=== PATIENT | male | born 1950 | race African-American/Black ===

== ENCOUNTER 2018-10-04 13:41 | Emergency (ER) | payer OTHER ==
--- NOTE | 2018-10-04 14:43 | ER ---
Nurse's Notes [facility] Name: Travis Ferris Age: 67 yrs Sex: Male : 1950 Arrival Date: 10/04/2018 Time: 13:44 Bed 14 Private MD: Katya Vallejo C Diagnosis: Scabies;Irritant contact dermatitis Presentation: 10/04 13:44 Presenting complaint: Patient states: i think i had shingles that showed up last hj Saturday on my R arm, back area, legs and buttocks area; it munoz;. Transition of care: patient was not received from another setting of care. Onset of symptoms was October 04, 2018. Risk Assessment: Do you want to hurt yourself or someone else? Patient reports no desire to harm self or others. Initial Sepsis Screen: Does the patient meet any 2 criteria? No. Patient's initial sepsis screen is negative. Does the patient have a suspected source of infection? No. Patient's initial sepsis screen is negative. Care prior to arrival: None. 13:44 Method Of Arrival: Ambulatory 13:44 Acuity: NINI 4 hj Historical: - Allergies: 13:45 No Known Allergies; hj - PMHx: 13:45 Hyperlipidemia; Hypertension; spider bite; hj - PSHx: 13:45 None; hj - Immunization history:: Adult Immunizations up to date. - Social history:: Smoking status: Patient/guardian denies using tobacco. - Ebola Screening: : Patient negative for fever greater than or equal to 101.5 degrees Fahrenheit, and additional compatible Ebola Virus Disease symptoms Patient denies exposure to infectious person Patient denies travel to an Ebola-affected area in the 21 days before illness onset No symptoms or risks identified at this time. Screenin:00 Abuse screen: Denies threats or abuse. Denies injuries from another. Nutritional sg screening: No deficits noted. Tuberculosis screening: No symptoms or risk factors identified. Never had TB. Fall Risk None identified. Assessment: 14:00 General: Appears in no apparent distress. well groomed, well developed, well nourished, sg Behavior is calm, cooperative, appropriate for age. Pain: Denies pain. Neuro: Level of Consciousness is awake, alert, obeys commands, Oriented to person, place, time, situation, Speech is normal, Facial symmetry appears normal. Cardiovascular: Capillary refill is brisk in bilateral fingers Patient's skin is warm and dry. Chest pain is denied. Respiratory: Airway is patent Respiratory effort is even, unlabored, Respiratory pattern is regular, symmetrical. GI: Abdomen is flat, non-distended. : No signs and/or symptoms were reported regarding the genitourinary system. EENT: No signs and/or symptoms were reported regarding the EENT system. Derm: Skin is pink, warm \T\ dry. Rash noted that is itchy, red, Reports itching. Musculoskeletal: Circulation, motion, and sensation intact. Range of motion: intact in all extremities. Vital Signs: 13:45 BP 144 / 65; Pulse 78; Resp 18; Temp 98.2(O); Pulse Ox 98% on R/A; Weight 90.72 kg; hj Height 6 ft. 2 in. (187.96 cm); Pain 4/10; 13:45 Body Mass Index 25.68 (90.72 kg, 187.96 cm) hj ED Course: 13:44 Patient arrived in ED. mr 13:44 Katya Vallejo MD is Private Physician. mr 13:45 Triage completed. hj 13:45 Arm band placed on left wrist. hj 13:55 Wilberto David RN is Primary Nurse. sg 14:00 Patient has correct armband on for positive identification. Bed in low position. Call sg light in reach. Side rails up X2. Pulse ox on. NIBP on. 14:29 Mallika Graham FNP-C is PHCP. snw 14:29 Quinn Rosas MD is Attending Physician. snw 14:41 Katya Vallejo MD is Referral Physician. snw 14:45 No provider procedures requiring assistance completed. Patient did not have IV access sg during this emergency room visit. Administered Medications: No medications were administered Outcome: 14:42 Discharge ordered by . snw 14:45 Discharged to home ambulatory, with family. sg 14:45 Condition: good 14:45 Discharge instructions given to patient, Instructed on discharge instructions, follow up and referral plans. safety practices, Demonstrated understanding of instructions, follow-up care, Prescriptions given X 2. 14:48 Patient left the ED. ms Signatures: Wilberto David RN RN Mallika Graham FNP-C FNP-Emilie Hatch mr Noemy Juan ms Robbi Vila, RN RN hj
--- NOTE | 2018-10-04 14:43 | EDPHYS ---
Physician Documentation [facility] Name: Travis Ferris Age: 67 yrs Sex: Male : 1950 Arrival Date: 10/04/2018 Time: 13:44 Bed 14 Private MD: Katya Vallejo C ED Physician Quinn Rosas HPI: 10/04 16:15 This 67 yrs old Black Male presents to ER via Ambulatory with complaints of Rash. snw 16:15 The patient's rash thought to be caused by pt thought the rash must be shingles, when snw it didn't look like shingles, pt states he has been on vacation, in different beds and felt "itchy" in a chair that might have had a flea problem. The rash is located on the body diffusely. The rash can be described as erythematous, papular, patchy, in linear distributions. Onset: The symptoms/episode began/occurred suddenly. Associated signs and symptoms: Pertinent positives: itching, worse at night. Severity of symptoms: At their worst the symptoms were moderate severe. Treatment given at home: Benadryl, OTC lotion/cream. The patient has not experienced similar symptoms in the past. It is unknown whether or not the patient has recently seen a physician. Historical: - Allergies: 13:45 No Known Allergies; hj - PMHx: 13:45 Hyperlipidemia; Hypertension; spider bite; hj - PSHx: 13:45 None; hj - Immunization history:: Adult Immunizations up to date. - Social history:: Smoking status: Patient/guardian denies using tobacco. - Ebola Screening: : Patient negative for fever greater than or equal to 101.5 degrees Fahrenheit, and additional compatible Ebola Virus Disease symptoms Patient denies exposure to infectious person Patient denies travel to an Ebola-affected area in the 21 days before illness onset No symptoms or risks identified at this time. ROS: 16:14 Constitutional: Negative for fever, chills, and weight loss, Eyes: Negative for injury, snw pain, redness, and discharge, ENT: Negative for injury, pain, and discharge, Neck: Negative for injury, pain, and swelling, Cardiovascular: Negative for chest pain, palpitations, and edema, Respiratory: Negative for shortness of breath, cough, wheezing, and pleuritic chest pain, Abdomen/GI: Negative for abdominal pain, nausea, vomiting, diarrhea, and constipation, Back: Negative for injury and pain, : Negative for injury, bleeding, discharge, and swelling, MS/Extremity: Negative for injury and deformity, Neuro: Negative for headache, weakness, numbness, tingling, and seizure, Psych: Negative for depression, anxiety, suicide ideation, homicidal ideation, and hallucinations, Allergy/Immunology: Negative for hives, rash, and allergies. 16:14 Skin: Positive for rash, of the right shoulder and arm and leg, moving to left leg and hand. Exam: 16:05 Constitutional: This is a well developed, well nourished patient who is awake, alert, snw and in no acute distress. Head/Face: Normocephalic, atraumatic. Eyes: Pupils equal round and reactive to light, extra-ocular motions intact. Lids and lashes normal. Conjunctiva and sclera are non-icteric and not injected. Cornea within normal limits. Periorbital areas with no swelling, redness, or edema. ENT: Nares patent. No nasal discharge, no septal abnormalities noted. Tympanic membranes are normal and external auditory canals are clear. Oropharynx with no redness, swelling, or masses, exudates, or evidence of obstruction, uvula midline. Mucous membranes moist. Neck: Trachea midline, no thyromegaly or masses palpated, and no cervical lymphadenopathy. Supple, full range of motion without nuchal rigidity, or vertebral point tenderness. No Meningismus. Chest/axilla: Normal chest wall appearance and motion. Nontender with no deformity. No lesions are appreciated. Cardiovascular: Regular rate and rhythm with a normal S1 and S2. No gallops, murmurs, or rubs. Normal PMI, no JVD. No pulse deficits. Respiratory: Lungs have equal breath sounds bilaterally, clear to auscultation and percussion. No rales, rhonchi or wheezes noted. No increased work of breathing, no retractions or nasal flaring. Abdomen/GI: Soft, non-tender, with normal bowel sounds. No distension or tympany. No guarding or rebound. No evidence of tenderness throughout. Back: No spinal tenderness. No costovertebral tenderness. Full range of motion. MS/ Extremity: Pulses equal, no cyanosis. Neurovascular intact. Full, normal range of motion. Neuro: Awake and alert, GCS 15, oriented to person, place, time, and situation. Cranial nerves II-XII grossly intact. Motor strength 5/5 in all extremities. Sensory grossly intact. Cerebellar exam normal. Normal gait. Psych: Awake, alert, with orientation to person, place and time. Behavior, mood, and affect are within normal limits. 16:05 Skin: Appearance: normal except for affected area, scabies, on the spreading, on both sides of body, linear configuration with surrounding erythema, pruritic worse at night. Vital Signs: 13:45 BP 144 / 65; Pulse 78; Resp 18; Temp 98.2(O); Pulse Ox 98% on R/A; Weight 90.72 kg; hj Height 6 ft. 2 in. (187.96 cm); Pain 4/10; 13:45 Body Mass Index 25.68 (90.72 kg, 187.96 cm) hj MDM: 14:33 Patient medically screened. snw 14:43 Data reviewed: vital signs, nurses notes. Data interpreted: Pulse oximetry: on room air snw is 98 %. Interpretation: normal. Counseling: I had a detailed discussion with the patient and/or guardian regarding: the historical points, exam findings, and any diagnostic results supporting the discharge/admit diagnosis, the presence of at least one elevated blood pressure reading (>120/80) during this emergency department visit, the need for outpatient follow up, for definitive care. Administered Medications: No medications were administered Disposition: 15:24 Co-signature as Attending Physician, Quinn Rosas MD. rn Disposition: 10/04/18 14:42 Discharged to Home. Impression: Scabies, Irritant contact dermatitis. - Condition is Stable. - Discharge Instructions: Contact Dermatitis, Scabies, Adult. - Prescriptions for Vistaril 25 mg Oral capsule - take 1 capsule by ORAL route 3 times per day; 30 capsule. Elimite 5 % Topical Cream - apply 1 application by TOPICAL route one time Wash after 12 hours.; 60 gram. - Medication Reconciliation Form, Thank You Letter, Antibiotic Education, Prescription Opioid Use form. - Follow up: Katya Vallejo MD; When: 2 - 3 days; Reason: Recheck today's complaints, Continuance of care, Re-evaluation by your physician. Follow up: Emergency Department; When: As needed; Reason: Worsening of condition. Signatures: Wilberto David RN RN Mallika Hsieh, MIXER OPERATOR TABLETS-C MIXER OPERATOR TABLETS-Csnw Noemy Juan ms, Roman, MD MD rn Joaquin, Henry, RN RN Corrections: (The following items were deleted from the chart) 14:48 14:42 10/04/2018 14:42 Discharged to Home. Impression: Scabies; Irritant contact ms dermatitis. Condition is Stable. Forms are Medication Reconciliation Form, Thank You Letter, Antibiotic Education, Prescription Opioid Use. Follow up: A Vallejo; When: 2 - 3 days; Reason: Recheck today's complaints, Continuance of care, Re-evaluation by your physician. Follow up: Emergency Department; When: As needed; Reason: Worsening of condition. snw
== END 2018-10-04 14:48 | disposition home or self-care (01) ==
LOC: ER 13:41
DX: B86 Scabies (principal); L24.9 Irritant contact dermatitis, unspecified cause; I10 Essential (primary) hypertension
CPT/HCPCS: 99283

== ENCOUNTER 2020-11-13 22:48 | Emergency (ER) | payer OTHER ==
--- NOTE | 2020-11-14 00:39 | ER ---
Nurse's Notes [facility] Name: Travis Ferris Age: 70 yrs Sex: Male : 1950 Arrival Date: 11/13/2020 Time: 22:50 Bed 18 Private MD: Diagnosis: Acute bronchitis, unspecified Presentation: 11/13 23:09 Chief complaint: Patient states: PT states he has been having an uncontrollable wg productive cough with clear and slightly yellowish sputum since 4am Saturday. Pt states he has not taken anything for the complaint. Pt denies SOB, CP, N/V, dizziness, diarrhea, or abd pain. Coronavirus screen: Vaccine status: Patient reports receiving the 2nd dose of the covid vaccine. Date April 27, 2020 Client denies travel out of the [place] in the last 14 days. Client presents with at least one sign or symptom that may indicate coronavirus-19. Standard/surgical mask placed on the client. Ebola Screen: Patient negative for fever greater than or equal to 101.5 degrees Fahrenheit, and additional compatible Ebola Virus Disease symptoms Patient denies exposure to infectious person. Patient denies travel to an Ebola-affected area in the 21 days before illness onset. No symptoms or risks identified at this time. Initial Sepsis Screen: Does the patient meet any 2 criteria? No. Patient's initial sepsis screen is negative. Does the patient have a suspected source of infection? No. Patient's initial sepsis screen is negative. Risk Assessment: Do you want to hurt yourself or someone else? Patient reports no desire to harm self or others. Onset of symptoms was November 12, 2020 at 04:00. Care prior to arrival: None. 23:09 Method Of Arrival: Ambulatory 23:09 Acuity: NINI 4 wg Triage Assessment: 23:13 General: Appears in no apparent distress. comfortable, well groomed, Behavior is calm, wg cooperative, appropriate for age. Pain: Denies pain. EENT: No deficits noted. Neuro: No deficits noted. Cardiovascular: No deficits noted. Respiratory: Reports cough that is productive. Respiratory: Onset: The symptoms/episode began/occurred yesterday, the patient has mild shortness of breath. GI: No deficits noted. : No deficits noted. Derm: No deficits noted. Musculoskeletal: No deficits noted. Historical: - Allergies: 23:13 No Known Allergies; wg - Home Meds: 23:13 Zetia Oral [Active]; wg - PMHx: 23:13 Hyperlipidemia; Hypertension; wg - Immunization history:: Adult Immunizations up to date. - Social history:: Smoking status: Patient denies any tobacco usage or history of. Patient uses Patient/guardian denies using street drugs, IV drugs. - Code Status:: Full code. Screenin:27 Abuse screen: Denies threats or abuse. Nutritional screening: No deficits noted. lh3 Tuberculosis screening: No symptoms or risk factors identified. Fall Risk None identified. Assessment: 23:27 General: Appears in no apparent distress. Behavior is calm, cooperative, appropriate lh3 for age, Reports coughing up flim. Cardiovascular: Rhythm is regular. Respiratory: Airway is patent Respiratory effort is even, unlabored, Respiratory pattern is regular, Sputum is thick, clear. 23:27 Neuro: No deficits noted. Respiratory: 3 Vital Signs: 23:09 BP 129 / 74; Pulse 72; Resp 18; Temp 98.6; Pulse Ox 99% on R/A; Weight 104.33 kg; wg Height 6 ft. 2 in. (187.96 cm); Pain 0/10; 23:27 BP 136 / 57; Pulse 78; Resp 18; Pulse Ox 97% on R/A; lh3 09 00:57 BP 143 / 89; Pulse 76; Resp 18; Pulse Ox 99% on R/A; lh3 12 23:09 Body Mass Index 29.53 (104.33 kg, 187.96 cm) Lawrence Coma Score: 11/13 23:27 Eye Response: spontaneous(4). Verbal Response: oriented(5). Motor Response: obeys 3 commands(6). Total: 15. ED Course: 22:50 Patient arrived in ED. wm 23:12 Triage completed. wg 23:12 Arm band placed on left wrist. wg 23:20 Sydnee Villanueva, RN is Primary Nurse. 3 23:22 Mulugeta Weiner MD is Attending Physician. tw4 23:27 Patient has correct armband on for positive identification. Bed in low position. Call 3 light in reach. Side rails up X 1. Adult w/ patient. Door closed. Warm blanket given. Head of bed elevated. 23:27 No provider procedures requiring assistance completed. [facility] 11/14 00:10 CXR XRAY In Process Unspecified. EDMS 01:17 Patient did not have IV access during this emergency room visit. 3 Administered Medications: 00:57 Drug: Tylenol (acetaminophen) -Codeine #3 (120 mg - 12 mg) 10 ml Route: PO; [facility] 00:58 Follow up: Response: No adverse reaction [facility] Outcome: 00:38 Discharge ordered by . 4 00:58 Discharged to home ambulatory, with significant other. [facility] 00:58 Condition: good 00:58 Discharge instructions given to patient, significant other, Instructed on discharge instructions, medication usage, Demonstrated understanding of instructions, follow-up care, medications, Prescriptions given X 1. 01:18 Patient left the ED. [facility] Signatures: Dispatcher [employer] Mulugeta Lilly MD MD 4 Noemi Land Latisha, RN RN 3 Romulo Reynolds RN wg
--- NOTE | 2020-11-14 00:39 | EDPHYS ---
Physician Documentation [facility] Name: Travis Ferris Age: 70 yrs Sex: Male : 1950 Arrival Date: 11/13/2020 Time: 22:50 Bed 18 Private MD: ED Physician Mulugeta Weiner HPI: 11/14 01:04 This 70 yrs old Black Male presents to ER via Ambulatory with complaints of Productive tw4 Cough. 01:04 The patient or guardian reports cough. Severity of symptoms: At their worst the tw4 symptoms were mild. The patient has not experienced similar symptoms in the past. 01:05 Onset: The symptoms/episode began/occurred yesterday. Modifying factors: The symptoms tw4 are alleviated by nothing, the symptoms are aggravated by nothing. Associated signs and symptoms: The patient has no apparent associated signs or symptoms. The patient has not recently seen a physician. Historical: - Allergies: 11/13 23:13 No Known Allergies; wg - Home Meds: 23:13 Zetia Oral [Active]; wg - PMHx: 23:13 Hyperlipidemia; Hypertension; wg - Immunization history:: Adult Immunizations up to date. - Social history:: Smoking status: Patient denies any tobacco usage or history of. Patient uses Patient/guardian denies using street drugs, IV drugs. - Code Status:: Full code. ROS: 11/14 01:05 Constitutional: Negative for fever, chills, and weight loss, Eyes: Negative for injury, tw4 pain, redness, and discharge, Neck: Negative for injury, pain, and swelling, Cardiovascular: Negative for chest pain, palpitations, and edema, Abdomen/GI: Negative for abdominal pain, nausea, vomiting, diarrhea, and constipation, Back: Negative for injury and pain, MS/Extremity: Negative for injury and deformity, Skin: Negative for injury, rash, and discoloration, Neuro: Negative for headache, weakness, numbness, tingling, and seizure. Respiratory: Positive for cough, Negative for dyspnea on exertion, hemoptysis, orthopnea, pleurisy, shortness of breath, sputum production, wheezing. Exam: 01:05 Constitutional: This is a well developed, well nourished patient who is awake, alert, tw4 and in no acute distress. Head/Face: Normocephalic, atraumatic. Chest/axilla: Normal chest wall appearance and motion. Nontender with no deformity. No lesions are appreciated. Cardiovascular: Regular rate and rhythm with a normal S1 and S2. No gallops, murmurs, or rubs. Normal PMI, no JVD. No pulse deficits. Respiratory: Lungs have equal breath sounds bilaterally, clear to auscultation and percussion. No rales, rhonchi or wheezes noted. No increased work of breathing, no retractions or nasal flaring. Abdomen/GI: Soft, non-tender, with normal bowel sounds. No distension or tympany. No guarding or rebound. No evidence of tenderness throughout. Back: No spinal tenderness. No costovertebral tenderness. Full range of motion. MS/ Extremity: Pulses equal, no cyanosis. Neurovascular intact. Full, normal range of motion. Neuro: Awake and alert, GCS 15, oriented to person, place, time, and situation. Cranial nerves II-XII grossly intact. Motor strength 5/5 in all extremities. Sensory grossly intact. Cerebellar exam normal. Normal gait. Vital Signs: 11/13 23:09 BP 129 / 74; Pulse 72; Resp 18; Temp 98.6; Pulse Ox 99% on R/A; Weight 104.33 kg; wg Height 6 ft. 2 in. (187.96 cm); Pain 0/10; 23:27 BP 136 / 57; Pulse 78; Resp 18; Pulse Ox 97% on R/A; lh3 11/14 00:57 BP 143 / 89; Pulse 76; Resp 18; Pulse Ox 99% on R/A; 3 11/13 23:09 Body Mass Index 29.53 (104.33 kg, 187.96 cm) Lawrence Coma Score: 11/13 23:27 Eye Response: spontaneous(4). Verbal Response: oriented(5). Motor Response: obeys lh3 commands(6). Total: 15. MDM: 23:22 Patient medically screened. tw4 11/14 01:05 Differential Diagnosis: Obstructed Airway Bronchitis Influenza Upper Respiratory tw4 Infection. Data reviewed: vital signs, nurses notes. Data interpreted: Pulse oximetry: Interpretation: normal. Counseling: I had a detailed discussion with the patient and/or guardian regarding: the historical points, exam findings, and any diagnostic results supporting the discharge/admit diagnosis. 01:07 Data reviewed: lab test result(s), radiologic studies, plain films. [facility] 11/14 00:37 Order name: SARS-COV-2 RT PCR [facility] 11/13 23:04 Order name: CXR XRAY tw4 Administered Medications: 00:57 Drug: Tylenol (acetaminophen) -Codeine #3 (120 mg - 12 mg) 10 ml Route: PO; 3 00:58 Follow up: Response: No adverse reaction 3 Disposition Summary: 11/14/20 00:38 Discharge Ordered Location: Home tw4 Problem: new tw4 Symptoms: have improved tw4 Condition: Stable tw4 Diagnosis - Acute bronchitis, unspecified tw4 Followup: tw4 - With: Private Physician - When: Upon discharge from the Emergency Department - Reason: Recheck today's complaints, Continuance of care, Re-evaluation by your physician Discharge Instructions: - Discharge Summary Sheet tw4 Forms: - Medication Reconciliation Form tw4 - Thank You Letter tw4 - Antibiotic Education tw4 - Prescription Opioid Use tw4 Prescriptions: - Tessalon Perles 100 mg Oral Capsule - take 1 capsule by ORAL route every 8 hours As needed; 15 capsule; Refills: 0, tw4 Product Selection Permitted - Zithromax Z-Brett 250 mg Oral Tablet - take 1 tablet by ORAL route as directed for 5 days Day 1 - take two (2) tablets tw4 one time. Day 2, 3, 4 , 5 take one (1) tablet once daily.; 6 tablet; Refills: 0, Product Selection Permitted Signatures: Dispatcher [facility] Mulugeta Weiner MD MD 4 Sydnee Villanueva RN RN 3 Romulo Reynolds RN Corrections: (The following items were deleted from the chart) 11/13 23:40 23:05 CORONAVIRUS+.BRZ ordered. [facility] 11/14 01:05 01:04 Onset: The symptoms/episode began/occurred today, tw4 tw4
[2020-11-14] MEDS ORDERED: CODEINE 12mg/APAP 120mg PER 5 ML UCUP ONE (01:19)
[2020-11-14 01:23] VITALS: TEMP 98.6
[2020-11-14 01:25] VITALS: BP 143/89; O2SAT 99
--- NOTE | 2020-11-14 07:25 | RAD REPORT ---
EXAM DESCRIPTION: RAD - Chest Single View - 11/14/2020 12:08 am CLINICAL HISTORY: COUGH COMPARISON: Chest Pa And Lat (2 Views) dated 01/03/2017; CHEST SINGLE VIEW dated 03/24/2009; CHEST SIN GLE VIEW dated 04/04/2004 FINDINGS: Lines: None. Lungs: No evidence of edema or pneumonia. Pleural: No significant pleural effusions or pneumothorax. Cardiac: The heart size is within normal limits. Bones: No acute fractures. Other: IMPRESSION: No acute cardiopulmonary disease.
== END 2020-11-14 01:18 | disposition home or self-care (01) ==
LOC: ER 22:48
DX: J20.9 Acute bronchitis, unspecified (principal); I10 Essential (primary) hypertension; E78.5 Hyperlipidemia, unspecified; Z20.822 Contact with and (suspected) exposure to COVID-19
CPT/HCPCS: 71045; 99283; U0003

== ENCOUNTER 2024-07-06 10:13 | Emergency (ER) | payer OTHER ==
--- OUTSIDE RECORDS SUMMARY | 2024-07-06 10:17 | XMS REPORT | Continuity of Care Document ---
Author Name Unknown Address [address] [facility] [address] [place] [address] Organization [facility] Address [address] [facility] [address] [place] [address] Care Team Providers Care Disbursing Officer Name Role Phone Abdulaziz Attending Clinician Derrick Cheatham Attending Clinician [phone] Abdulaziz Admitting Clinician Corinne kwan Payers Payer Name Policy Type Policy Number Effective Date Expirati on Date Source [employer] (MEDICARE REPLACEMENT PPO) [id number] 2021 00:00:00 [employer] (PPO) [id number] 2021 00:00:00 Social History Smoking Status Start Date Stop Date Source Never Smoker [facility] Medications Ordered Medication Name Filled Medication Name Start Date Stop Date Current Medication? Ordering Clinician Indication Dosage Frequency Signature (SIG) Comments Components Source azithromyci n 250 mg tablet TAKE 2 TABLETS BY MOUTH TODAY, THEN TAKE 1 TABLET DAILY FOR 4 DAYS azithromyci n 250 mg tablet TAKE 2 TABLETS BY MOUTH TODAY, THEN TAKE 1 TABLET DAILY FOR 4 DAYS No azithromyc in 250 mg tablet TAKE 2 TABLETS BY MOUTH TODAY, THEN TAKE 1 TABLET DAILY FOR 4 DAYS [facility] benzonatate 100 mg capsule TAKE 1 CAPSULE BY MOUTH EVERY 8 HOURS NEEDED FOR COUGH AND CONGESTION benzonatate 100 mg capsule TAKE 1 CAPSULE BY MOUTH EVERY 8 HOURS NEEDED FOR COUGH AND CONGESTION No benzonatat e 100 mg capsule TAKE 1 CAPSULE BY MOUTH EVERY 8 HOURS NEEDED FOR COUGH AND CONGESTION [facility] BinaxNOW COVID-19 Ag Self Test kit USE DIRECTED BinaxNOW COVID-19 Ag Self Test kit USE DIRECTED No BinaxNOW COVID-19 Ag Self Test kit USE DIRECTED [facility] ezetimibe 10 mg tablet TAKE 1 TABLET BY MOUTH EVERY DAY ezetimibe 10 mg tablet TAKE 1 TABLET BY MOUTH EVERY DAY No ezetimibe 10 mg tablet TAKE 1 TABLET BY MOUTH EVERY DAY [facility] gabapentin 100 mg capsule TAKE 1 CAPSULE BY MOUTH TWICE A DAY gabapentin 100 mg capsule TAKE 1 CAPSULE BY MOUTH TWICE A DAY No gabapentin 100 mg capsule TAKE 1 CAPSULE BY MOUTH TWICE A DAY [facility] gabapentin 300 mg capsule TAKE 1 CAPSULE BY MOUTH TWICE A DAY gabapentin 300 mg capsule TAKE 1 CAPSULE BY MOUTH TWICE A DAY No gabapentin 300 mg capsule TAKE 1 CAPSULE BY MOUTH TWICE A DAY [facility] metoprolol succinate ER 25 mg tablet,exte nded release 24 hr TAKE 1 TABLET BY MOUTH EVERY DAY metoprolol succinate ER 25 mg tablet,exte nded release 24 hr TAKE 1 TABLET BY MOUTH EVERY DAY No metoprolol succinate ER 25 mg tablet,ext ended release 24 hr TAKE 1 TABLET BY MOUTH EVERY DAY [facility] prednisone 10 mg tablet TAKE 3 TABLET DAILY FOR 3 DAYS, THEN 2 TABLET DAILY FOR 3 DAYS, THEN 1 TABLET DAILY FOR 3 DAYS prednisone 10 mg tablet TAKE 3 TABLET DAILY FOR 3 DAYS, THEN 2 TABLET DAILY FOR 3 DAYS, THEN 1 TABLET DAILY FOR 3 DAYS No prednisone 10 mg tablet TAKE 3 TABLET DAILY FOR 3 DAYS, THEN 2 TABLET DAILY FOR 3 DAYS, THEN 1 TABLET DAILY FOR 3 DAYS [facility] Vital Signs Vital Name Observation Time Observation Value Comments S ource Height 2021-09-27 00:00:00 74 [in_i] [facility] BMI (Body Mass Index) 2021-09-27 00:00:00 29.5 kg/m2 [facility] Body Weight 2021-09-27 00:00:00 230 [lb_av] [facility] Procedures Procedure Date / Time Performed Performing Clinicia n Source RADEX SPI LUMBOSAC MINIMUM 4 VIEWS 2021-09-27 00:00:00 [facility] Encounters Start Date/Time End Date/Time Encounter Type Admission Type Attending Clinicians Care Facility Care Department Encounter ID Source 2021-09-27 00:00:00 2021-09-27 00:00:00 Outpatient [facility] A[facility] [id number] [facility] 2021-09-27 00:00:00 2021-09-27 00:00:00 Derrick Doll MD: [id number] [facility] [address], [place] [address] , Ph. [phone] [facility] [place] [facility] [place] [id number] [facility] 2021-09-27 00:00:00 2021-09-27 00:00:00 Outpatient Derrick Doll AOS[facility] AOSM [id number] 2021-09-08 05:41:00 2021-09-08 05:41:00 Outpatient [facility] A[facility] AOS[facility] [id number] [facility] 2021-09-08 05:41:00 2021-09-08 05:41:00 Outpatient [facility] Tillman A[facility] AOSM [id number] [facility]
[2024-07-06] MEDS ORDERED: IBUPROFEN 200 MG TAB PO ONE (10:54)
--- NOTE | 2024-07-06 11:11 | RAD REPORT ---
EXAM: CT brain without contrast HISTORY: SYNCOPE COMPARISON: None TECHNIQUE: Multiple contiguous axial images were obtained and a CT of the brain without contrast. Sag ittal and coronal reformats were performed. One or more of the following dose reduction techniques were used: Automated exposure control, adjust ment of the mA and/or kV according to patient size, and/or iterative reconstruction. FINDINGS: No evidence of hydrocephalus, intracranial hemorrhage, or extra-axial fluid collection. The brain is normal in morphology. No evidence of midline shift or areas of brain edema. The calvarium is intact. The visualized paranasal sinuses and mastoid air cells are essentially clear . IMPRESSION: No evidence of acute intracranial abnormality.
--- NOTE | 2024-07-06 11:13 | RAD REPORT ---
EXAMINATION: ONE VIEW CHEST XR CLINICAL INDICATION: fall TECHNIQUE: Frontal chest projection is submitted. Examination is limited by patient positioning and t echnique. COMPARISON: 03/05/2024 FINDINGS: The lungs are diffusely emphysematous but grossly clear. The heart is upper limit of normal in size. No displaced fractures identified. IMPRESSION: COPD without an acute process suspected.
--- NOTE | 2024-07-06 11:13 | RAD REPORT ---
EXAMINATION: XR RIGHT SHOUDLER CLINICAL INDICATION: Male, 73 years old. PAIN RIGHT TECHNIQUE: Multiple views of the right shoulder were obtained. COMPARISON: No prior exam. FINDINGS: Glenohumeral joint and AC joint degenerative changes are present. No fracture or dislocati on.
--- NOTE | 2024-07-06 11:16 | RAD REPORT ---
EXAMINATION: XR PELVIS CLINICAL INDICATION: PAIN TECHNIQUE: AP Pelvis examination was obtained. COMPARISON: No prior exam. FINDINGS: Moderate bilateral hip osteoarthritis. No fracture, dislocation or AVN.
[2024-07-06 11:21] LABS: Absolute Eosinophils 0.2 K/uL (0-0.5); Absolute Lymphocytes (CBC) 2.2 K/uL (0.7-4.9); Absolute Monocytes 0.8 K/uL (0.1-1.3); Absolute Neutrophil 4.9 K/uL (1.8-8.0); Basophils % 0.6 % (0-1.3); Eosinophils % 2.5 % (0-4.4); Lymphocytes % 27.4 % (15.3-44.8); MCH 31.5 pg (27.0-35.0); MCV 92.5 fL (80-100); MPV 9.6 fL (7.6-11.3); Monocytes % 9.3 % (3.3-12.3); Neutrophils % 60.2 % (41.7-73.7); Nucleated Red Blood Cells % 0.1 % (0-0); Platelets 178 thou/uL (152-406); RBC Red Blood Cell Count 4.44 M/uL (4.33-5.43); Red Cell Distribution Width 13.3 % (12.1-15.2)
[2024-07-06 11:41] LABS: Anion Gap 7.1 mEq/L (5.0-15.0); Potassium 4.1 mEq/L (3.5-5.1); Troponin High Sensitivity 6.2 pg/mL (<58.9)
--- NOTE | 2024-07-06 12:31 | ER ---
Nurse's Notes [facility] Name: Travis Ferris Age: 73 yrs Sex: Male : 1950 Arrival Date: 07/06/2024 Time: 10:13 Bed 19 Private MD: Diagnosis: Fall on same level, unspecified Presentation: 07/06 10:26 Chief complaint: Patient states: he was going to use the bathroom and had syncopal me1 episode. +LOC. Hit his right shoulder and RLE. Hit his head on the door facing. Reports having difficulty moving his right arm. No blood thinners. Patient did start taking meloxicam 15 mg PO Q Day last week. Coronavirus screen: Vaccine status: Patient reports receiving the 2nd dose of the covid vaccine. Ebola Screen: No symptoms or risks identified at this time. Initial Sepsis Screen: Does the patient meet any 2 criteria? No. Patient's initial sepsis screen is negative. Does the patient have a suspected source of infection? No. Patient's initial sepsis screen is negative. Risk Assessment: Do you want to hurt yourself or someone else? Patient reports no desire to harm self or others. Onset of symptoms was July 06, 2024. 10:26 Method Of Arrival: Ambulatory al1 10:26 Acuity: NINI 2 me1 Triage Assessment: 10:29 General: Appears uncomfortable, well groomed, well developed, well nourished, Behavior me1 is calm, cooperative, appropriate for age, Reports pain to head, right shoulder and right lower leg. Pain: Complains of pain in head, right shoulder, RLE Pain does not radiate. Pain currently is 4 out of 10 on a pain scale. Quality of pain is described as aching, Pain began gradually, Is continuous. EENT: No signs and/or symptoms were reported regarding the EENT system. Neuro: Level of Consciousness is awake, alert, obeys commands, Oriented to person, place, time, situation, Appropriate for age Reports a syncopal episode. Cardiovascular: Patient's skin is warm and dry. Respiratory: Airway is patent Respiratory effort is even, unlabored, Respiratory pattern is regular, symmetrical. GI: No signs and/or symptoms were reported involving the gastrointestinal system. : No signs and/or symptoms were reported regarding the genitourinary system. Derm: Skin is healthy with good turgor, Skin is pink, warm \T\ dry. Bruising that is on right urbina. Musculoskeletal: Reports pain in anterior aspect of right shoulder, head and RLE. Injury Description: syncopal episode caused a fall, hitting head, right shoulder and RLE. Historical: - Allergies: 10:29 No Known Allergies; me1 - PMHx: 10:29 Hyperlipidemia; Hypertension; spider bite; sciatica; me1 - PSHx: 10:29 Tonsillectomy; me1 - Immunization history:: Adult Immunizations up to date. - Infectious Disease History:: Denies. - Social history:: Smoking status: Patient denies any tobacco usage or history of. Screenin:33 [facility] ED Fall Risk Assessment (Adult) History of falling in the last 3 months, me1 including since admission Yes- physiologic fall (2 pts) Confusion or Disorientation No (0 pts) Intoxicated or Sedated No (0 pts) Impaired Gait No (0 pts) Mobility Assist Device Used No (0 pt) Altered Elimination No (0 pt) Score/Fall Risk Level 0 - 2 = Low Risk. Abuse screen: Denies threats or abuse. Nutritional screening: No deficits noted. Tuberculosis screening: No symptoms or risk factors identified. Assessment: 10:33 General: See triage assessment. Neuro: Level of Consciousness is awake, alert, obeys me1 commands, Oriented to person, place, time, situation, Appropriate for age. Cardiovascular: Patient's skin is warm and dry. 12:15 Reassessment: ambulated two laps around the pod. Denies dizziness, tolerated well. Did me1 c/o pain to right shoulder with ambulation. Cardiovascular: Rhythm is sinus bradycardia. Vital Signs: 10:26 BP 150 / 77; Pulse 64; Resp 12; Temp 98.2; Pulse Ox 98% ; Weight 104.33 kg; Height 6 me1 ft. 2 in. ; Pain 4/10; 11:00 BP 146 / 60; Pulse 64; Resp 17; Pulse Ox 97% ; me1 12:00 BP 156 / 73; Pulse 58; Resp 18; Pulse Ox 96% ; me1 12:30 BP 137 / 67; Pulse 64; Resp 16; Temp 98.4; Pulse Ox 99% ; me1 10:26 Body Mass Index 29.53 (104.33 kg, 187.96 cm) me1 10:26 Pain Scale: Adult me1 ED Course: 10:14 Patient arrived in ED. 10:26 Orquidea Silva, RN is Primary Nurse. me1 10:27 Lauro Fabian MD is Attending Physician. jj9 10:29 Triage completed. me1 10:29 Arm band placed on Patient placed in an exam room. me1 10:33 Patient has correct armband on for positive identification. Bed in low position. Call al1 light in reach. Side rails up X2. Provided Education on: POC. Verbalized understanding.. Client placed on continuous cardiac and pulse oximetry monitoring. NIBP monitoring applied. jewelry repairer on. Pulse ox on. NIBP on. 10:33 No provider procedures requiring assistance completed. me1 10:54 CT Head Brain wo Cont In Process Unspecified. EDMS 11:05 XRAY Chest (1 view) In Process Unspecified. EDMS 11:05 Shoulder Right (2 View) XRAY In Process Unspecified. EDMS 11:05 Pelvis XRAY In Process Unspecified. EDMS 11:11 Initial lab(s) drawn, by al, sent to lab. Inserted saline lock: 22 gauge in right me1 antecubital area, using aseptic technique. 11:12 Basic Metabolic Panel Sent. me1 11:12 CBC with Diff Sent. me1 11:12 Troponin HS Sent. me1 12:39 EKG done, by ED staff, reviewed by Lauro Fabian MD. me1 12:39 IV discontinued, intact, bleeding controlled, No redness/swelling at site. Pressure me1 dressing applied. Administered Medications: 11:11 Drug: Ibuprofen PO 600 mg PO once Route: PO; me1 12:31 Follow up: Response: No adverse reaction; Pain is decreased me1 Medication: 10:33 VIS not applicable for this client. me1 Outcome: 12:30 Discharge ordered by . jj9 12:40 Discharged to home ambulatory, with significant other, me1 12:40 Condition: stable 12:40 Discharge instructions given to patient, significant other, Instructed on discharge instructions, follow up and referral plans. Demonstrated understanding of instructions, follow-up care, 12:40 Patient left the ED. me1 Signatures: Dispatcher [employer] EDVT [place] Concepcion Orquidea Silva, TOMMY RN me1 Lauro Fabian MD MATA jj9
--- NOTE | 2024-07-06 12:31 | EDPHYS ---
Physician Documentation [facility] Name: Travis Ferris Age: 73 yrs Sex: Male : 1950 Arrival Date: 07/06/2024 Time: 10:13 Bed 19 Private MD: ED Physician Lauro Fabian HPI: 07/06 12:31 This 73 yrs old Black Male presents to ER via Ambulatory with complaints of Syncope, jj9 Fall Injury, Head Injury-Adult. 10:34 The patient has experienced syncope. jj9 10:34 73-year-old man reports he went to the bathroom this morning and while changing his jj9 close bent over falling towards the right side he hit his right side of the head, right shoulder and right hip. He denies preceding chest pain or shortness of breath. Past medical history is significant for hyperlipidemia, hypertension and back pain. He denies weakness, tingling, numbness or any other problems at this time he is awake alert oriented. He endorses drinking regularly every day in the evenings denies tobacco use.. Historical: - Allergies: 10:29 No Known Allergies; me1 - PMHx: 10:29 Hyperlipidemia; Hypertension; spider bite; sciatica; me1 - PSHx: 10:29 Tonsillectomy; me1 - Immunization history:: Adult Immunizations up to date. - Infectious Disease History:: Denies. - Social history:: Smoking status: Patient denies any tobacco usage or history of. ROS: 10:35 Constitutional: Negative for fever, chills, and weight loss, Eyes: Negative for injury, jj9 pain, redness, and discharge, ENT: Negative for injury, pain, and discharge, Neck: Negative for injury, pain, and swelling, Cardiovascular: Negative for chest pain, palpitations, and edema, Respiratory: Negative for shortness of breath, cough, wheezing, and pleuritic chest pain, Abdomen/GI: Negative for abdominal pain, nausea, vomiting, diarrhea, and constipation, Back: Negative for injury and pain, : Negative for injury, bleeding, discharge, and swelling, MS/Extremity: right shoulder pain, right hip pain Skin: Negative for injury, rash, and discoloration, Neuro: Negative for headache, weakness, numbness, tingling, and seizure, right side pain Psych: Negative for depression, anxiety, suicide ideation, homicidal ideation, and hallucinations, Allergy/Immunology: Negative for hives, rash, and allergies, Endocrine: Negative for neck swelling, polydipsia, polyuria, polyphagia, and marked weight changes, Hematologic/Lymphatic: Negative for swollen nodes, abnormal bleeding, and unusual bruising, Exam: 10:36 Head/Face: Normocephalic, contusion to right parietal area Eyes: Pupils equal round jj9 and reactive to light, extra-ocular motions intact. Lids and lashes normal. Conjunctiva and sclera are non-icteric and not injected. Cornea within normal limits. Periorbital areas with no swelling, redness, or edema. ENT: Nares patent. No nasal discharge, no septal abnormalities noted. Tympanic membranes are normal and external auditory canals are clear. Oropharynx with no redness, swelling, or masses, exudates, or evidence of obstruction, uvula midline. Mucous membranes moist. Neck: Trachea midline, no thyromegaly or masses palpated, and no cervical lymphadenopathy. Supple, full range of motion without nuchal rigidity, or vertebral point tenderness. No Meningismus. Chest/axilla: Normal chest wall appearance and motion. Nontender with no deformity. No lesions are appreciated. Cardiovascular: Regular rate and rhythm with a normal S1 and S2. No gallops, murmurs, or rubs. Normal PMI, no JVD. No pulse deficits. Respiratory: Lungs have equal breath sounds bilaterally, clear to auscultation and percussion. No rales, rhonchi or wheezes noted. No increased work of breathing, no retractions or nasal flaring. Abdomen/GI: Soft, non-tender, with normal bowel sounds. No distension or tympany. No guarding or rebound. No evidence of tenderness throughout. Back: No spinal tenderness. No costovertebral tenderness. Full range of motion. Skin: Warm, dry with normal turgor. Normal color with no rashes, no lesions, and no evidence of cellulitis. MS/ Extremity: Pulses equal, no cyanosis. Neurovascular intact. Full, normal range of motion. pain to right shoulder, no obvious deformity normal pulses and sensory Neuro: Awake and alert, GCS 15, oriented to person, place, time, and situation. Cranial nerves II-XII grossly intact. Motor strength 5/5 in all extremities. Sensory grossly intact. Cerebellar exam normal. Normal gait. Psych: Awake, alert, with orientation to person, place and time. Behavior, mood, and affect are within normal limits. 12:28 ECG was reviewed by the Attending Physician. Normal sinus rhythm, rate of 58, no ST-T j9 changes otherwise normal EKG. Vital Signs: 10:26 BP 150 / 77; Pulse 64; Resp 12; Temp 98.2; Pulse Ox 98% ; Weight 104.33 kg; Height 6 me1 ft. 2 in. ; Pain 4/10; 11:00 BP 146 / 60; Pulse 64; Resp 17; Pulse Ox 97% ; me1 12:00 BP 156 / 73; Pulse 58; Resp 18; Pulse Ox 96% ; me1 12:30 BP 137 / 67; Pulse 64; Resp 16; Temp 98.4; Pulse Ox 99% ; me1 10:26 Body Mass Index 29.53 (104.33 kg, 187.96 cm) [facility] 10:26 Pain Scale: Adult [facility] MDM: 10:28 Medical Screening Exam initiated j9 10:38 Differential Diagnosis: cerebrovascular accident, drug effect, idiopathic syncope, jj9 seizure, vasovagal episode, electrolyte abnormality, ACS, etc . 10:38 I considered the following discharge prescriptions or medication management in the [facility] emergency department Medications were administered in the Emergency Department. See MAR. Care significantly affected by the following Social Determinants of Health: Misuse of alcohol and/or drugs. Response to treatment: the patient's symptoms have mildly improved after treatment. ED course: Patient appears hemodynamically stable and in no distress upon initial evaluation. Will start with a CT scan of the head, chest x-ray, pelvis x-ray and cardiac labs. The patient denies any other problems at this time other than the right shoulder discomfort.. 12:27 Medication response: ibuprofen administration has improved the patient's pain. ED jj9 course: The patient is ambulatory denies chest pain, shortness of breath, weakness or any other problem. Pain to the right shoulder but no obvious underlying fracture on x-ray. CT scan of the head, chest and pelvis with no acute findings. This is probably vasovagal syncope versus balance issues. He would like to go home advised to continue home medications, follow-up PCP and return to the emergency department if worsening of symptoms or any other problems. The patient understands and agrees with the plan.. 12:31 Data reviewed: vital signs, nurses notes, lab test result(s), radiologic studies, [facility] scan, plain films. 07/06 10:33 Order name: Basic Metabolic Panel; Complete Time: 11:54 07/06 11:54 Interpretation: Within normal limits. 07/06 10:33 Order name: CBC with Diff; Complete Time: 11:54 07/06 11:54 Interpretation: Within normal limits. 07/06 10:33 Order name: Troponin HS; Complete Time: 11:54 07/06 11:55 Interpretation: Within normal limits. 07/06 10:33 Order name: XRAY Chest (1 view); Complete Time: 11:54 07/06 11:55 Interpretation: No acute disease. 07/06 10:33 Order name: CT Head Brain wo Cont; Complete Time: 11:54 07/06 11:55 Interpretation: No acute disease. 07/06 10:33 Order name: Shoulder Right (2 View) XRAY; Complete Time: 11:54 07/06 11:55 Interpretation: No acute disease. 07/06 10:33 Order name: Pelvis XRAY; Complete Time: 11:54 07/06 11:55 Interpretation: No acute disease. 07/06 10:33 Order name: EKG; Complete Time: 10:34 07/06 10:33 Order name: Cardiac monitoring; Complete Time: 11:12 07/06 10:33 Order name: EKG - Nurse/Tech; Complete Time: 12:39 07/06 10:33 Order name: IV Saline Lock; Complete Time: 11:12 07/06 10:33 Order name: Labs collected and sent; Complete Time: 11:12 07/06 10:33 Order name: O2 Per Protocol; Complete Time: 11:12 07/06 10:33 Order name: O2 Sat Monitoring; Complete Time: 11:12 07/06 12:39 Order name: Sling; Complete Time: 12:39 me1 Administered Medications: 11:11 Drug: Ibuprofen PO 600 mg PO once Route: PO; me1 12:31 Follow up: Response: No adverse reaction; Pain is decreased me1 Disposition: 17:27 Co-signature as Attending Physician, Lauro Fabian MD. jj9 Disposition Summary: 07/06/24 12:30 Discharge Ordered Notes: Location: Home jj9 Problem: new jj9 Condition: Stable jj9 Diagnosis - Fall on same level, unspecified jj9 Discharge Instructions: - Discharge Summary Sheet jj9 - Fall Prevention in the Home, Adult jj9 - Syncope jj9 Forms: - Medication Reconciliation Form jj9 - Antibiotic Education jj9 - Prescription Opioid Use jj9 - Patient Portal Instructions jj9 - Leadership Thank You Letter jj9 Signatures: Dispatcher [employer] Orquidea Galindo RN RN me1 Lauro Fabian MD MD jj9
[2024-07-06 13:56] VITALS: BP 137/67; TEMP 98.4; O2SAT 99
--- NOTE | 2024-07-09 11:54 | EKG ---
Test Date: 2024-07-06 Test Time: 11:16:53 [place] C[place]: MEASUREMENT RESULTS: Intervals: Rate: 58 UT: 190 QRSD: 94 QT: 390 QTc: 382 [place]: P: 82 UT: 190 QRS: 71 T: 65 INTERPRETIVE STATEMENTS: Sinus bradycardia Otherwise normal ECG Compared to ECG 05/03/2023 12:51:58 Sinus rhythm no longer present Electronically Signed On 07-09-24 11:47:30 CDT by Aman Carmona
== END 2024-07-06 12:40 | disposition home or self-care (01) ==
LOC: ER 10:13
DX: S00.83XA Contusion of other part of head, initial encounter (principal); M25.511 Pain in right shoulder; M25.551 Pain in right hip; W18.30XA Fall on same level, unspecified, initial encounter
CPT/HCPCS: 36415; 70450; 71045; 72170; 80048; 84484; 85025; 93005; 99284